=== PATIENT | male | born 1955 | race Caucasian/White ===

== ENCOUNTER 2020-10-15 03:19 | Inpatient (IN) | payer MEDICAID ==
[~2020-10-15] VITALS: Ht 167.6 cm; Wt 104.3 kg
[2020-10-15 03:45] LABS: Basophils # (auto) 0 10 ^3/uL (0-0.2); Basophils % (auto) 0.5 % (0.0-2.0); Eosinophils # (auto) 0.1 10 ^3/uL (0-0.8); Eosinophils % (auto) 1.5 % (0.0-7.0); Hematocrit 38.4 % (41.0-53.0); Hemoglobin 13.4 g/dL (13.5-17.5); Lymphocytes # (auto) 1.2 10 ^3/uL (0.4-5.4); Mean Corpuscular Hemoglobin 32.4 pg (28.0-32.0); Mean Corpuscular Hgb Conc. 34.9 g/dL (32.0-36.0); Mean Corpuscular Volume 92.8 fL (80.0-100.0); Monocytes # (auto) 0.6 10 ^3/uL (0-1.3); Monocytes % (auto) 7.6 % (0.0-12.0); Neutrophils # (auto) 6.4 10 ^3/uL (1.6-8.6); Neutrophils % (auto) 76.4 % (37.0-80.0); Platelet Count (auto) 288 10^3/uL (140-450); Red Blood Cells 4.13 10^6/uL (4.5-5.90); Red Cell Distribution Width 12.3 % (11.8-14.3); White Blood Cell 8.4 10^3/uL (4.4-10.8)
[2020-10-15] MEDS ORDERED: IOHEXOL 350 MG/ML 100ML IJ ONE (03:45)
[2020-10-15] MEDS ORDERED: ESMOLOL HCL (10MG/ML) 10 ML VIAL IV ONE (03:45)
[2020-10-15] MEDS ORDERED: ESMOLOL HCL-NS 10MG/ML 250 ML IV SCH (03:45)
[2020-10-15 04:05] LABS: Anion Gap 6 (5-15); BUN/Creatinine Ratio 15.5; Blood Urea Nitrogen 15 mg/dL (7-18); Calcium 8.5 mg/dL (8.5-10.1); Carbon Dioxide 28 mmol/L (21-32); Chloride 103 mmol/L (98-107); GFR African American 100 mL/min; GFR Non-African American 83 mL/min; Glucose 172 mg/dL (74-106); Potassium 3.5 mmol/L (3.5-5.1); Sodium 137 mmol/L (136-145)
[2020-10-15] MEDS ORDERED: LABETALOL INJECTION 250 MG in SODIUM CHL 0.9% 200 ML IV ONE (04:15)
[2020-10-15] MEDS ORDERED: LABETALOL HCL 5 MG/ML 4ML SYRINGE IV ONE (04:15)
[2020-10-15] MEDS ORDERED: FAMOTIDINE (10MG/ML) 2ML VL IV ONE (04:45)
[2020-10-15] MEDS ORDERED: LIDOCAINE VISCOUS 2% 15ML UD PO ONE (04:45)
[2020-10-15] MEDS ORDERED: ASPirin 325 MG TAB PO ONE (04:45)
[2020-10-15] MEDS ORDERED: DONNATAL 5ml ORAL Elix (BELLADONNA ALK-PHENOBARB) PO ONE (05:45)
[2020-10-15] MEDS ORDERED: ONDANSETRON HCL 4 MG/2 ML VIAL IV ONE ×2 (05:45→08:15)
[2020-10-15] MEDS ORDERED: MORPHINE SULFATE 4 MG/ML SYR/VIAL IV ONE (06:15)
[2020-10-15 07:42] LABS: Lactic Acid w/Reflex 2.1 mmol/L (0.4-2.0)
[2020-10-15] MEDS ORDERED: HYDROmorphone HCL 2 MG/ML VL IV ONE (08:15)
[2020-10-15] MEDS ORDERED: NITROGLYCERIN 0.4 MG SL TAB SL PRN (09:15)
[2020-10-15] MEDS ORDERED: MORPHINE SULF INJ 2 MG/ML SYRINGE 1ML IV PRN (09:15)
[2020-10-15] MEDS ORDERED: LORazepam 2MG/ML-1ML VIAL IV PRN (09:45)
[2020-10-15] MEDS ORDERED: THIAMINE 100mg/ml INJ (200mg/2ml VIAL) IV ONE (09:45)
[2020-10-15] MEDS ORDERED: DEXTROSE (50%) 50ML SYRG IV PRN (09:45)
[2020-10-15] MEDS ORDERED: ONDANSETRON HCL 4 MG/2 ML VIAL IV PRN (09:45)
[2020-10-15] MEDS ORDERED: LABETALOL HCL 5 MG/ML 4ML SYRINGE IV PRN (09:45)
[2020-10-15 10:36] LABS: INR 0.97 (0.9-1.15); Partial Thromboplastin Time 26.8 sec (23.0-31.2)
[2020-10-15] MEDS: LACTATED RINGER'S 1,000 ML IV SCH ×2 (11:08→21:43)
[2020-10-15] MEDS: THIAMINE 100mg/ml INJ (200mg/2ml VIAL) IV SCH (11:24)
[2020-10-15] MEDS: levoFLOXacin 500MG 100 ML IV SCH (11:24)
[2020-10-15] MEDS: FAMOTIDINE (10MG/ML) 2ML VL IV SCH (11:25)
[2020-10-15] MEDS: InsuLIN REG 1unit/0.01ml Soln (100units/ml) SC SCH ×2 (12:00→18:00)
[2020-10-15] MEDS: ACCU-CHEK COMFORT CURVE STRIP VI SCH ×2 (12:00→18:21)
[2020-10-15 12:10] VITALS: BP 131/65
[2020-10-15 12:25] LABS: Urine Bacteria NONE SEEN /hpf (None Seen); Urine Blood Negative /uL (Negative); Urine WBC 2 /hpf (0 - 3)
[2020-10-15 12:28] LABS: Urine Specific Gravity > 1.050 (1.001-1.035)
[2020-10-15] MEDS: HYDROcodone-ACET 5/325MG TAB PO PRN (12:28)
[2020-10-15 15:06] VITALS: BP 138/56
[2020-10-15] MEDS: metroNIDAZOLE 500MG/100ML 100 ML IV SCH ×2 (15:09→21:43)
[2020-10-15 16:35] VITALS: BP 135/81
[2020-10-15] MEDS: MORPHINE SULF INJ 2 MG/ML SYRINGE 1ML IV PRN (17:50)
[2020-10-15 21:43] VITALS: BP 139/65
[2020-10-16] MEDS: ACCU-CHEK COMFORT CURVE STRIP VI SCH ×4 (00:02→17:38)
[2020-10-16] MEDS: LACTATED RINGER'S 1,000 ML IV SCH ×3 (01:45→17:38)
[2020-10-16 04:33] VITALS: BP 135/68
[2020-10-16] MEDS: InsuLIN REG 1unit/0.01ml Soln (100units/ml) SC SCH ×4 (06:00→17:38)
[2020-10-16] MEDS: metroNIDAZOLE 500MG/100ML 100 ML IV SCH ×2 (06:11→16:51)
[2020-10-16 06:28] LABS: Basophils # (auto) 0.2 10 ^3/uL (0-0.2); Basophils % (auto) 0.8 % (0.0-2.0); Eosinophils # (auto) 0 10 ^3/uL (0-0.8); Hematocrit 37.6 % (41.0-53.0); Hemoglobin 13.3 g/dL (13.5-17.5); Lymphocytes # (auto) 0.7 10 ^3/uL (0.4-5.4); Lymphocytes % (auto) 2.8 % (10.0-50.0); Mean Corpuscular Hemoglobin 32.7 pg (28.0-32.0); Mean Corpuscular Hgb Conc. 35.3 g/dL (32.0-36.0); Mean Corpuscular Volume 92.6 fL (80.0-100.0); Monocytes # (auto) 1.6 10 ^3/uL (0-1.3); Monocytes % (auto) 6.4 % (0.0-12.0); Neutrophils # (auto) 22.1 10 ^3/uL (1.6-8.6); Platelet Count (auto) 274 10^3/uL (140-450); Red Blood Cells 4.06 10^6/uL (4.5-5.90); Red Cell Distribution Width 12.4 % (11.8-14.3); White Blood Cell 24.6 10^3/uL (4.4-10.8)
[2020-10-16 06:49] LABS: Albumin 3.3 g/dL (3.4-5.0); Calcium 8.5 mg/dL (8.5-10.1); Potassium 3.1 mmol/L (3.5-5.1)
[2020-10-16 06:53] LABS: BUN/Creatinine Ratio 13.5; Bilirubin, Total 1.4 mg/dL (0.2-1.0)
[2020-10-16 08:33] VITALS: BP 150/69
[2020-10-16] MEDS: POTASSIUM CHL 20MEQ/100ML 100 ML IV SCH ×2 (08:38→13:21)
[2020-10-16] MEDS ORDERED: ceFAZolin 1GM/50ML 50 ML IV ONE (09:13)
[2020-10-16] MEDS ORDERED: BUPIVACAINE 0.25% INJ 50ML VIAL ONE (09:31)
[2020-10-16] MEDS ORDERED: MIDAZOLAM HCL 1MG/1ML-2 ML VIAL ONE (09:43)
[2020-10-16] MEDS ORDERED: fentaNYL CITRATE 5 ML ONE (09:43)
[2020-10-16] MEDS ORDERED: LIDOCAINE 2% (LOCAL ANESTH.) PF 5ml SDV ONE (09:44)
[2020-10-16] MEDS ORDERED: PROPOFOL 10 MG/ML 20 ML IV ONE ×2 (09:44→11:47)
[2020-10-16] MEDS ORDERED: ROCURONIUM 10MG/ML 10ML VIAL IV ONE (09:49)
[2020-10-16] MEDS ORDERED: ONDANSETRON HCL 4 MG/2 ML VIAL ONE (11:12)
[2020-10-16] MEDS ORDERED: GLYCOPYRROLATE 0.2 MG/ML 1ML VIAL ONE ×2 (11:14)
[2020-10-16] MEDS ORDERED: NEOSTIGMINE 1 MG/ML INJ (10mg/10ML VIAL) ONE (11:14)
[2020-10-16] MEDS ORDERED: HYDROmorphone HCL 2 MG/ML VL IV PRN ×2 (12:15)
[2020-10-16] MEDS ORDERED: HYDROmorphone HCL 2 MG/ML VL ONE (12:15)
[2020-10-16] MEDS ORDERED: ONDANSETRON HCL 4 MG/2 ML VIAL IV PRN (12:15)
[2020-10-16] MEDS ORDERED: POTASSIUM CHL 20MEQ/100ML 100 ML IV SCH (12:30)
[2020-10-16 12:50] VITALS: BP 138/92
[2020-10-16] MEDS: FAMOTIDINE (10MG/ML) 2ML VL IV SCH (13:21)
[2020-10-16] MEDS: levoFLOXacin 500MG 100 ML IV SCH (13:21)
[2020-10-16] MEDS: THIAMINE 100mg/ml INJ (200mg/2ml VIAL) IV SCH (13:21)
[2020-10-16 16:22] VITALS: BP 142/77
[2020-10-16] MEDS: ACETAMINOPHEN 325 MG TAB PO PRN (17:21)
[2020-10-16] MEDS: HYDROcodone-ACET 5/325MG TAB PO PRN (17:21)
[2020-10-16 21:45] VITALS: BP 122/66
[2020-10-17] MEDS: ACCU-CHEK COMFORT CURVE STRIP VI SCH ×6 (00:12→23:43)
[2020-10-17] MEDS: metroNIDAZOLE 500MG/100ML 100 ML IV SCH ×3 (00:24→17:01)
[2020-10-17] MEDS: LACTATED RINGER'S 1,000 ML IV SCH ×3 (02:00→18:34)
[2020-10-17] MEDS: ACETAMINOPHEN 325 MG TAB PO PRN ×2 (04:28→14:56)
[2020-10-17 05:00] VITALS: BP 137/74
[2020-10-17] MEDS: InsuLIN REG 1unit/0.01ml Soln (100units/ml) SC SCH ×5 (06:23→23:43)
[2020-10-17 07:57] LABS: Basophils # (auto) 0.1 10 ^3/uL (0-0.2); Basophils % (auto) 0.4 % (0.0-2.0); Eosinophils # (auto) 0 10 ^3/uL (0-0.8); Eosinophils % (auto) 0.2 % (0.0-7.0); Hematocrit 35.1 % (41.0-53.0); Hemoglobin 12.1 g/dL (13.5-17.5); Lymphocytes # (auto) 0.8 10 ^3/uL (0.4-5.4); Lymphocytes % (auto) 4.8 % (10.0-50.0); Mean Corpuscular Hemoglobin 32.5 pg (28.0-32.0); Mean Corpuscular Hgb Conc. 34.4 g/dL (32.0-36.0); Mean Corpuscular Volume 94.6 fL (80.0-100.0); Monocytes # (auto) 0.9 10 ^3/uL (0-1.3); Monocytes % (auto) 5.5 % (0.0-12.0); Neutrophils # (auto) 15.2 10 ^3/uL (1.6-8.6); Neutrophils % (auto) 89.1 % (37.0-80.0); Platelet Count (auto) 236 10^3/uL (140-450); Red Blood Cells 3.71 10^6/uL (4.5-5.90); Red Cell Distribution Width 12.5 % (11.8-14.3); White Blood Cell 17.1 10^3/uL (4.4-10.8)
[2020-10-17 08:31] LABS: Potassium 3.4 mmol/L (3.5-5.1)
[2020-10-17 08:57] LABS: Albumin 2.5 g/dL (3.4-5.0); BUN/Creatinine Ratio 14.7; Bilirubin, Total 1.1 mg/dL (0.2-1.0); Calcium 7.8 mg/dL (8.5-10.1); Total Protein 6.2 g/dL (6.4-8.2)
[2020-10-17 09:00] VITALS: BP 143/71
[2020-10-17] MEDS: THIAMINE 100mg/ml INJ (200mg/2ml VIAL) IV SCH (09:09)
[2020-10-17] MEDS: FAMOTIDINE (10MG/ML) 2ML VL IV SCH (09:09)
[2020-10-17] MEDS: levoFLOXacin 500MG 100 ML IV SCH (10:44)
[2020-10-17 12:59] VITALS: BP 138/70
[2020-10-17 16:47] VITALS: BP 132/70
[2020-10-17 21:10] VITALS: BP 136/70
[2020-10-18] MEDS: LACTATED RINGER'S 1,000 ML IV SCH ×3 (00:18→17:33)
[2020-10-18] MEDS: metroNIDAZOLE 500MG/100ML 100 ML IV SCH ×3 (00:18→17:01)
[2020-10-18 05:07] VITALS: BP 155/79
[2020-10-18 05:37] LABS: Basophils # (auto) 0.1 10 ^3/uL (0-0.2); Basophils % (auto) 0.4 % (0.0-2.0); Eosinophils # (auto) 0.2 10 ^3/uL (0-0.8); Eosinophils % (auto) 1.3 % (0.0-7.0); Hematocrit 33.6 % (41.0-53.0); Hemoglobin 11.5 g/dL (13.5-17.5); Lymphocytes # (auto) 0.9 10 ^3/uL (0.4-5.4); Lymphocytes % (auto) 6.3 % (10.0-50.0); Mean Corpuscular Hemoglobin 32.3 pg (28.0-32.0); Mean Corpuscular Hgb Conc. 34.2 g/dL (32.0-36.0); Mean Corpuscular Volume 94.6 fL (80.0-100.0); Monocytes % (auto) 6.9 % (0.0-12.0); Neutrophils # (auto) 12.1 10 ^3/uL (1.6-8.6); Neutrophils % (auto) 85.1 % (37.0-80.0); Nucleated Red Blood Cells % 0.1 %; Platelet Count (auto) 257 10^3/uL (140-450); Red Blood Cells 3.55 10^6/uL (4.5-5.90); Red Cell Distribution Width 12.2 % (11.8-14.3); White Blood Cell 14.2 10^3/uL (4.4-10.8)
[2020-10-18] MEDS: ACCU-CHEK COMFORT CURVE STRIP VI SCH ×4 (06:00→23:35)
[2020-10-18] MEDS: InsuLIN REG 1unit/0.01ml Soln (100units/ml) SC SCH ×4 (06:00→23:35)
[2020-10-18 06:02] LABS: Albumin 2.4 g/dL (3.4-5.0); BUN/Creatinine Ratio 16.9; Calcium 7.9 mg/dL (8.5-10.1); Potassium 3.3 mmol/L (3.5-5.1)
[2020-10-18 06:09] LABS: Total Protein 6.3 g/dL (6.4-8.2)
[2020-10-18 08:40] VITALS: BP 138/76
[2020-10-18] MEDS: THIAMINE 100mg/ml INJ (200mg/2ml VIAL) IV SCH (10:05)
[2020-10-18] MEDS: levoFLOXacin 500MG 100 ML IV SCH (10:05)
[2020-10-18] MEDS: FAMOTIDINE (10MG/ML) 2ML VL IV SCH (10:05)
[2020-10-18] MEDS: MORPHINE SULF INJ 2 MG/ML SYRINGE 1ML IV PRN (10:50)
[2020-10-18 13:00] VITALS: BP 139/69
[2020-10-18] MEDS: ALUM & MAG HYDROX-SIMETH LIQ(MAALOX) 30 ML PO PRN (14:25)
[2020-10-18] MEDS ORDERED: POTASSIUM CHL 10 Meq TABLET PO ONE (15:00)
[2020-10-18 16:50] VITALS: BP 146/73
[2020-10-18] MEDS: Glucerna Carbsteady SHAKE Vanilla 8oz PO SCH (17:33)
[2020-10-18 22:00] VITALS: BP 120/65
[2020-10-19] MEDS: metroNIDAZOLE 500MG/100ML 100 ML IV SCH ×3 (01:20→16:16)
[2020-10-19] MEDS: LACTATED RINGER'S 1,000 ML IV SCH ×2 (01:45→10:24)
[2020-10-19] MEDS: ALUM & MAG HYDROX-SIMETH LIQ(MAALOX) 30 ML PO PRN ×2 (04:15→10:25)
[2020-10-19 05:00] VITALS: BP 138/75
[2020-10-19] MEDS: ACCU-CHEK COMFORT CURVE STRIP VI SCH ×2 (05:37→12:00)
[2020-10-19] MEDS: InsuLIN REG 1unit/0.01ml Soln (100units/ml) SC SCH ×2 (05:37→12:00)
[2020-10-19 07:03] LABS: Basophils # (auto) 0.1 10 ^3/uL (0-0.2); Basophils % (auto) 0.4 % (0.0-2.0); Eosinophils # (auto) 0.3 10 ^3/uL (0-0.8); Eosinophils % (auto) 2.4 % (0.0-7.0); Hematocrit 34.3 % (41.0-53.0); Hemoglobin 11.9 g/dL (13.5-17.5); Lymphocytes % (auto) 8.3 % (10.0-50.0); Mean Corpuscular Hemoglobin 32.3 pg (28.0-32.0); Mean Corpuscular Hgb Conc. 34.6 g/dL (32.0-36.0); Mean Corpuscular Volume 93.5 fL (80.0-100.0); Monocytes # (auto) 1.2 10 ^3/uL (0-1.3); Monocytes % (auto) 9.9 % (0.0-12.0); Neutrophils # (auto) 9.7 10 ^3/uL (1.6-8.6); Platelet Count (auto) 322 10^3/uL (140-450); Red Blood Cells 3.67 10^6/uL (4.5-5.90); Red Cell Distribution Width 12.3 % (11.8-14.3); White Blood Cell 12.2 10^3/uL (4.4-10.8)
[2020-10-19 07:24] LABS: Albumin 2.4 g/dL (3.4-5.0); BUN/Creatinine Ratio 17.5; Calcium 7.9 mg/dL (8.5-10.1); Potassium 3.5 mmol/L (3.5-5.1)
[2020-10-19 07:26] LABS: Bilirubin, Total 0.8 mg/dL (0.2-1.0); Total Protein 6.6 g/dL (6.4-8.2)
[2020-10-19 08:00] VITALS: BP 137/85
[2020-10-19] MEDS: Glucerna Carbsteady SHAKE Vanilla 8oz PO SCH ×2 (08:00→12:00)
[2020-10-19] MEDS: THIAMINE 100mg/ml INJ (200mg/2ml VIAL) IV SCH (10:24)
[2020-10-19] MEDS: levoFLOXacin 500MG 100 ML IV SCH (10:25)
[2020-10-19] MEDS: FAMOTIDINE (10MG/ML) 2ML VL IV SCH (10:25)
[2020-10-19 12:00] VITALS: BP 158/83
[2020-10-19 16:00] VITALS: BP 153/56
== END 2020-10-19 17:48 | disposition home or self-care (01) | DRG 710 ==
LOC: ER 03:20 → OVERFLOW 09:04 → TELE-WESTW 12:10
PROVIDERS: ADMIT Internal Medicine; ATTEND Internal Medicine
PROC: 0FT44ZZ Resection of Gallbladder, Percutaneous Endoscopic Approach (ICD-10-PCS; principal; 2020-10-16 09:49)
DX: A41.9 Sepsis, unspecified organism (principal); E44.0 Moderate protein-calorie malnutrition; K80.00 Calculus of gallbladder with acute cholecystitis without obstruction; K76.0 Fatty (change of) liver, not elsewhere classified; E11.65 Type 2 diabetes mellitus with hyperglycemia; E87.1 Hypo-osmolality and hyponatremia; E88.09 Other disorders of plasma-protein metabolism, not elsewhere classified; N28.89 Other specified disorders of kidney and ureter; I10 Essential (primary) hypertension; E66.9 Obesity, unspecified; F10.20 Alcohol dependence, uncomplicated; K40.20 Bilateral inguinal hernia, without obstruction or gangrene, not specified as recurrent; K57.90 Diverticulosis of intestine, part unspecified, without perforation or abscess without bleeding; I70.90 Unspecified atherosclerosis; D63.8 Anemia in other chronic diseases classified elsewhere; Z20.822 Contact with and (suspected) exposure to COVID-19; E87.6 Hypokalemia; Z80.3 Family history of malignant neoplasm of breast; Z87.891 Personal history of nicotine dependence; Z90.49 Acquired absence of other specified parts of digestive tract; Z68.34 Body mass index [BMI] 34.0-34.9, adult
CPT/HCPCS: 36415; 71045; 75635; 76705; 76775; 80048; 80053; 81001; 82150; 82247; 82962; 83036; 83605; 83690; 83880; 84443; 84484; 85025; 85610; 85730; 86850; 86900; 86901; 87040; 87070; 87075; 87205; 87426; 93005; 93306; 96374; 96375; 97110; 97530; G0378; J0690; J1815; J1956; J2001; J2250; J2405; J2704; J3480; J3490